=== PATIENT | male | born 1980 | race African-American/Black ===

== ENCOUNTER 2019-02-10 06:56 | Emergency (ER) | payer MEDICARE, MEDICAID ==
[~2019-02-10] VITALS: Ht 185.4 cm; Wt 104.0 kg
[2019-02-10 08:01] VITALS: BP 133/76
[2019-02-10] MEDS ORDERED: BACITRACIN ZINC OINT UDPKT TOP ONE (08:30)
== END 2019-02-10 09:24 | disposition home or self-care (01) ==
LOC: ER 06:56
DX: Z48.02 Encounter for removal of sutures (principal); R05 Cough; F17.210 Nicotine dependence, cigarettes, uncomplicated; I10 Essential (primary) hypertension; Z71.89 Other specified counseling; E11.9 Type 2 diabetes mellitus without complications; E78.00 Pure hypercholesterolemia, unspecified
CPT/HCPCS: 71045; 99283

== ENCOUNTER 2021-08-25 03:28 | Inpatient (IN) | payer OTHER, MEDICARE, MEDICAID ==
[~2021-08-25] VITALS: Ht 182.9 cm; Wt 147.0 kg
[2021-08-25] VITALS (25 sets, daily range): BP systolic 131–188; BP diastolic 69–138
[2021-08-25] MEDS ORDERED: IPRATROPIUM BROMIDE (0.02%) 0.5MG/2.5ML NEB HHN STA (04:00)
[2021-08-25] MEDS ORDERED: METHYLPREDNISOLONE SOD SUCC 125 MG/2 ML VIAL IV STA (04:00)
[2021-08-25] MEDS ORDERED: MAGNESIUM 2 G PREMIX 50 ML IV STA (04:00)
[2021-08-25] MEDS ORDERED: ALBUTEROL (0.083%) 2.5MG/3ML NEB HHN STA (04:00)
[2021-08-25 04:27] LABS: BASOPHILS % 0.2 % (0.0-2.0); EOSINOPHILS % 1.4 % (0.0-5.0); HEMATOCRIT. 37.9 % (42.0-52.0); HEMOGLOBIN. 12.1 g/dL (14.0-18.0); LYMPHOCYTES % 49.8 % (20.0-50.0); MEAN CORPUSCULAR HEMOGLOBIN 30.5 pg (28.0-32.0); MEAN CORPUSCULAR VOLUME 95.6 fL (80.0-94.0); MEAN PLATELET VOLUME 8.6 fl (7.4-10.4); MONOCYTES % 8.8 % (2.0-8.0); NEUTROPHILS % 39.8 % (40.0-76.0); PLATELET 220 x1000/uL (130-400); RED BLOOD CELL COUNT 3.96 mill/uL (4.7-6.1); RED CELL DISTRIBUTION WIDTH 14.1 % (11.6-14.6)
[2021-08-25 04:34] LABS: CHLORIDE 102 mEq/L (98-107)
[2021-08-25 04:43] LABS: ETHANOL BLOOD < 10 mg/dL
[2021-08-25 04:48] LABS: BG BASE EXCESS 3.1 mmol/L (-2.0-2.0); BG CARBOXYHEMOGLOBIN 5.1 % (0.5-1.5); BG DEOXYHEMOGLOBIN 3.6 % (0.0-5.0); BG HCO3 ACT 31.4 mmol/L (22.0-26.0); BG METHEMOGLOBIN 0.2 % (0.0-1.5); BG OXYGEN SATURATION 96.2 % (92.0-98.5); BG OXYHEMOGLOBIN 91.1 % (94.0-97.0); BG PCO2 66.2 mmHg (35.0-45.0); BG PH 7.294 (7.350-7.450); BG PO2 90.9 mmHg (75.0-100.0); BG SAMPLE SITE LEFT RADIAL; BG TOTAL HEMOGLOBIN 12.9 g/dL (12.0-18.0); BG VENT MODE COOL AEROSOL
[2021-08-25 05:05] LABS: *AMPHETAMINES SCREEN URINE NEGATIVE (NEGATIVE); *BARBITURATES SCREEN URINE NEGATIVE (NEGATIVE); *BENZODIAZEPINES SCREEN URINE NEGATIVE (NEGATIVE); *COCAINE SCREEN URINE NEGATIVE (NEGATIVE); CANNABINOID URINE SCREEN NEGATIVE (NEGATIVE); METHADONE URINE SCREEN NEGATIVE (NEGATIVE); OPIATES URINE SCREEN NEGATIVE (NEGATIVE); PHENCYCLIDINE URINE SCREEN NEGATIVE (NEGATIVE)
[2021-08-25] MEDS ORDERED: IPRATROPIUM/ALBUTEROL 0.5-3(2.5)MG/3ML NEB NEB PRN (07:30)
[2021-08-25] MEDS ORDERED: GUAIFENESIN 200MG/10ML SUGAR FREE UDC PO PRN (07:30)
[2021-08-25] MEDS ORDERED: ONDANSETRON HCL 4MG/2ML INJ IV PRN (07:30)
[2021-08-25] MEDS ORDERED: DEXTROSE 50% WATER 50ML SYRINGE IV PRN (07:30)
[2021-08-25] MEDS ORDERED: ACETAMINOPHEN 325MG TABLET PO PRN ×2 (07:30)
[2021-08-25] MEDS ORDERED: DOCUSATE SODIUM 100MG CAPSULE PO PRN (07:30)
[2021-08-25] MEDS ORDERED: MAGNESIUM/ALUMINUM HYDROXIDE/SIMETHICONE 30ML UDC PO PRN (07:30)
[2021-08-25] MEDS ORDERED: KETOROLAC 15MG/ML VIAL IV PRN (07:30)
[2021-08-25] MEDS ORDERED: NITROGLYCERIN 0.4MG TABLET SL SL PRN (07:45)
[2021-08-25] MEDS: INSULIN LISPRO 100 UNITS/ML SUBCUT SCH ×5 (08:15→22:07)
[2021-08-25] MEDS: ENOXAPARIN 40MG/0.4ML SYR SUBCUT SCH (08:20)
[2021-08-25] MEDS: IPRATROPIUM/ALBUTEROL 0.5-3(2.5)MG/3ML NEB HHN SCH ×4 (08:23→20:15)
[2021-08-25 08:28] LABS: FOLIC ACID (FOLATE) SERUM 9.1 ng/mL (>5.38)
[2021-08-25] MEDS: SPIRONOLACTONE 25MG TABLET PO SCH ×2 (09:00→22:05)
[2021-08-25] MEDS: BLOOD SUGAR DIAGNOSTIC STRIP TEST SCH ×4 (09:00→21:27)
[2021-08-25] MEDS ORDERED: ASPIRIN 325MG EC TABLET PO SCH (09:00)
[2021-08-25] MEDS: FAMOTIDINE 20MG TABLET PO SCH ×2 (09:00→22:04)
[2021-08-25] MEDS ORDERED: ETOMIDATE 2MG/ML 10ML VIAL IV ONE (09:21)
[2021-08-25] MEDS ORDERED: SODIUM CHLORIDE 0.9% 10ML VIAL ONE (09:21)
[2021-08-25] MEDS ORDERED: VECURONIUM BROMIDE 10 MG/VIAL IV ONE (09:21)
[2021-08-25] MEDS ORDERED: FENTANYL 2500MCG/250ML PMX 250 ML IV PRN (09:30)
[2021-08-25] MEDS: PROPOFOL 10MG/ML 100ML 100 ML IV SCH ×4 (10:04→19:25)
[2021-08-25 10:09] LABS: BG BASE EXCESS -0.7 mmol/L (-2.0-2.0); BG DEOXYHEMOGLOBIN 1.9 % (0.0-5.0); BG HCO3 ACT 25.8 mmol/L (22.0-26.0); BG METHEMOGLOBIN 0.3 % (0.0-1.5); BG OXYGEN SATURATION 98.1 % (92.0-98.5); BG OXYHEMOGLOBIN 95.8 % (94.0-97.0); BG PCO2 49.5 mmHg (35.0-45.0); BG PH 7.335 (7.350-7.450); BG PO2 108.1 mmHg (75.0-100.0); BG SAMPLE SITE RIGHT RADIAL; BG VENT MODE VENT - AC
[2021-08-25] MEDS: FUROSEMIDE 40MG/4ML VIAL IVP SCH ×2 (10:31→22:05)
[2021-08-25] MEDS: CLONIDINE 0.1MG TABLET PO PRN (10:31)
[2021-08-25] MEDS: HYDRALAZINE 20MG/ML VIAL IV PRN ×2 (10:42→23:50)
[2021-08-25] MEDS: ASPIRIN 325MG TABLET PO SCH (11:39)
[2021-08-25] MEDS: DILTIAZEM HCL 60MG TABLET PO SCH ×2 (12:12→18:00)
[2021-08-25] MEDS: INSULIN GLARGINE 100 UNITS/ML SUBCUT SCH (12:39)
[2021-08-25] MEDS: NITROGLYCERIN OINT 1GM/INCH UDPKT TD SCH ×2 (14:00→22:08)
[2021-08-25] MEDS: METHYLPREDNISOLONE SOD SUCC 125 MG/2 ML VIAL IV SCH ×2 (15:13→22:04)
[2021-08-25] MEDS ORDERED: VANCOMYCIN 2,000 MG in DEXT 5% WATER 500 ML IV NR (20:00)
[2021-08-25] MEDS ORDERED: ZOLPIDEM TARTRATE 5MG TABLET PO PRN (21:00)
[2021-08-25] MEDS: PIPERACILLIN/TAZOBACTAM 3.375 G in DEXTROSE 5% WATER 50 ML IV SCH (22:05)
[2021-08-25] MEDS: FENTANYL 2500MCG/250ML PMX 250 ML IV PRN (22:09)
[2021-08-26] VITALS (97 sets, daily range): BP systolic 113–191; BP diastolic 55–132
[2021-08-26] MEDS ORDERED: PROPOFOL 10MG/ML 100ML 100 ML IV PRN (00:15)
[2021-08-26] MEDS: IPRATROPIUM/ALBUTEROL 0.5-3(2.5)MG/3ML NEB HHN SCH ×6 (00:23→20:12)
[2021-08-26 00:47] LABS: CREATINE KINASE 86 IU/L (39-308); CREATINE KINASE MB FRACTION 2.7 ng/mL (0.5-3.6)
[2021-08-26] MEDS: PROPOFOL 10MG/ML 100ML 100 ML IV PRN ×4 (00:52→11:04)
[2021-08-26] MEDS ORDERED: VANCOMYCIN 1G PREMIX 200 ML IV SCH (03:00)
[2021-08-26] MEDS: BLOOD SUGAR DIAGNOSTIC STRIP TEST SCH ×4 (05:22→21:22)
[2021-08-26] MEDS: DILTIAZEM HCL 60MG TABLET PO SCH ×4 (05:22→17:31)
[2021-08-26] MEDS: HYDRALAZINE 20MG/ML VIAL IV PRN ×2 (05:33→16:08)
[2021-08-26] MEDS: METHYLPREDNISOLONE SOD SUCC 125 MG/2 ML VIAL IV SCH (05:33)
[2021-08-26] MEDS: PIPERACILLIN/TAZOBACTAM 3.375 G in DEXTROSE 5% WATER 50 ML IV SCH ×3 (05:33→21:23)
[2021-08-26] MEDS: NITROGLYCERIN OINT 1GM/INCH UDPKT TD SCH ×3 (05:33→21:31)
[2021-08-26] MEDS: VANCOMYCIN 1.25GM PMX (XELLIA) 250 ML IV SCH ×3 (05:35→21:23)
[2021-08-26 05:49] LABS: HEMOGLOBIN. 13.3 g/dL (14.0-18.0); MEAN CORPUSCULAR HEMOGLOBIN 30.6 pg (28.0-32.0); MEAN CORPUSCULAR VOLUME 94.5 fL (80.0-94.0); MEAN PLATELET VOLUME 9.6 fl (7.4-10.4); PLATELET 234 x1000/uL (130-400); RED BLOOD CELL COUNT 4.34 mill/uL (4.7-6.1); RED CELL DISTRIBUTION WIDTH 14.2 % (11.6-14.6)
[2021-08-26 06:01] LABS: CHLORIDE 101 mEq/L (98-107)
[2021-08-26] MEDS: INSULIN LISPRO 100 UNITS/ML SUBCUT SCH ×7 (07:23→21:38)
[2021-08-26 07:47] LABS: PLATELET ESTIMATE NORMAL
[2021-08-26 08:04] LABS: BG CARBOXYHEMOGLOBIN 0.6 % (0.5-1.5); BG DEOXYHEMOGLOBIN 1.5 % (0.0-5.0); BG FRACTION INSPIRED OXYGEN 75; BG HCO3 ACT 28.3 mmol/L (22.0-26.0); BG METHEMOGLOBIN 0.3 % (0.0-1.5); BG OXYGEN SATURATION 98.5 % (92.0-98.5); BG OXYHEMOGLOBIN 97.6 % (94.0-97.0); BG PCO2 45.9 mmHg (35.0-45.0); BG PH 7.408 (7.350-7.450); BG PO2 126.4 mmHg (75.0-100.0); BG SAMPLE SITE RIGHT RADIAL; BG TOTAL HEMOGLOBIN 14.9 g/dL (12.0-18.0); BG VENT MODE VENT - AC
[2021-08-26] MEDS: ASPIRIN 325MG TABLET PO SCH (08:19)
[2021-08-26] MEDS: ENOXAPARIN 40MG/0.4ML SYR SUBCUT SCH ×2 (08:19→21:31)
[2021-08-26] MEDS: FAMOTIDINE 20MG TABLET PO SCH ×2 (08:19→21:30)
[2021-08-26] MEDS: FUROSEMIDE 40MG/4ML VIAL IVP SCH ×2 (08:20→21:31)
[2021-08-26] MEDS: SPIRONOLACTONE 25MG TABLET PO SCH ×2 (08:23→21:30)
[2021-08-26] MEDS: INSULIN GLARGINE 100 UNITS/ML SUBCUT SCH (09:51)
[2021-08-26] MEDS ORDERED: MAGNESIUM 4 G PREMIX 100 ML IV NR (11:00)
[2021-08-26] MEDS: MIDAZOLAM 100MG/100ML PMX 100 ML IV PRN ×2 (11:56→21:22)
[2021-08-26] MEDS: METHYLPREDNISOLONE SOD SUCC 40 MG/ML VIAL IV SCH (17:31)
[2021-08-26] MEDS: CLONIDINE 0.1MG TABLET PO PRN (17:32)
[2021-08-26] MEDS: FENTANYL 2500MCG/250ML PMX 250 ML IV PRN (22:12)
[2021-08-27] VITALS (63 sets, daily range): BP systolic 93–156; BP diastolic 42–103
[2021-08-27] MEDS: IPRATROPIUM/ALBUTEROL 0.5-3(2.5)MG/3ML NEB HHN SCH ×5 (00:36→20:11)
[2021-08-27 03:36] LABS: CHLORIDE 103 mEq/L (98-107)
[2021-08-27 03:49] LABS: VANCOMYCIN TROUGH 26.2 ug/mL (5.0-10.0)
[2021-08-27] MEDS: NITROGLYCERIN OINT 1GM/INCH UDPKT TD SCH ×2 (05:11→13:11)
[2021-08-27] MEDS: PIPERACILLIN/TAZOBACTAM 3.375 G in DEXTROSE 5% WATER 50 ML IV SCH ×2 (05:11→13:12)
[2021-08-27] MEDS: VANCOMYCIN 1.25GM PMX (XELLIA) 250 ML IV SCH (05:11)
[2021-08-27] MEDS: DILTIAZEM HCL 60MG TABLET PO SCH ×4 (06:00→18:00)
[2021-08-27] MEDS: INSULIN LISPRO 100 UNITS/ML SUBCUT SCH ×7 (06:49→20:22)
[2021-08-27] MEDS: BLOOD SUGAR DIAGNOSTIC STRIP TEST SCH ×4 (06:50→20:21)
[2021-08-27 08:21] LABS: BG BASE EXCESS 3.7 mmol/L (-2.0-2.0); BG CARBOXYHEMOGLOBIN 0.8 % (0.5-1.5); BG DEOXYHEMOGLOBIN 6.4 % (0.0-5.0); BG FRACTION INSPIRED OXYGEN 50; BG HCO3 ACT 27.5 mmol/L (22.0-26.0); BG METHEMOGLOBIN 0.3 % (0.0-1.5); BG OXYGEN SATURATION 93.5 % (92.0-98.5); BG OXYHEMOGLOBIN 92.5 % (94.0-97.0); BG PCO2 38.9 mmHg (35.0-45.0); BG PH 7.468 (7.350-7.450); BG PO2 68.9 mmHg (75.0-100.0); BG SAMPLE SITE RIGHT RADIAL; BG TOTAL HEMOGLOBIN 13.9 g/dL (12.0-18.0); BG VENT MODE VENT - AC
[2021-08-27] MEDS: SPIRONOLACTONE 25MG TABLET PO SCH ×2 (08:22→20:21)
[2021-08-27] MEDS: FUROSEMIDE 40MG/4ML VIAL IVP SCH ×2 (08:22→20:21)
[2021-08-27] MEDS: METHYLPREDNISOLONE SOD SUCC 40 MG/ML VIAL IV SCH (08:22)
[2021-08-27] MEDS: ASPIRIN 325MG TABLET PO SCH (08:22)
[2021-08-27] MEDS: FAMOTIDINE 20MG TABLET PO SCH ×2 (08:22→20:21)
[2021-08-27] MEDS: ENOXAPARIN 40MG/0.4ML SYR SUBCUT SCH ×2 (08:23→20:21)
[2021-08-27] MEDS: INSULIN GLARGINE 100 UNITS/ML SUBCUT SCH (11:14)
[2021-08-27] MEDS: GUAIFENESIN 200MG/10ML SUGAR FREE UDC PO SCH ×2 (13:10→18:06)
[2021-08-27] MEDS: MIDAZOLAM 100MG/100ML PMX 100 ML IV PRN (16:48)
[2021-08-27] MEDS ORDERED: VANCOMYCIN 1.25GM PMX (XELLIA) 250 ML IV SCH (18:00)
[2021-08-27] MEDS: FENTANYL 2500MCG/250ML PMX 250 ML IV PRN (20:20)
[2021-08-28] MEDS ORDERED: METHYLPREDNISOLONE SOD SUCC 40 MG/ML VIAL IV SCH (09:00)
== END 2021-08-27 21:30 | disposition short-term general hospital (02) | DRG 208 ==
LOC: ER 03:28 → MICUNO 05:20 → ENRESERV 15:30 → CVICU 08-27 02:48
PROVIDERS: ADMIT Internal Medicine; ATTEND Internal Medicine
PROC: 0BH17EZ Insertion of Endotracheal Airway into Trachea, Via Natural or Artificial Opening (ICD-10-PCS; principal; 2021-08-25)
PROC: 5A1945Z Respiratory Ventilation, 24-96 Consecutive Hours (ICD-10-PCS; 2021-08-25)
PROC: 5A09357 Assistance with Respiratory Ventilation, Less than 24 Consecutive Hours, Continuous Positive Airway Pressure (ICD-10-PCS; 2021-08-25)
DX: J96.02 Acute respiratory failure with hypercapnia (principal); G92.8 Other toxic encephalopathy; J69.0 Pneumonitis due to inhalation of food and vomit; I16.1 Hypertensive emergency; J45.901 Unspecified asthma with (acute) exacerbation; E44.0 Moderate protein-calorie malnutrition; Z68.41 Body mass index [BMI] 40.0-44.9, adult; J96.01 Acute respiratory failure with hypoxia; G40.909 Epilepsy, unspecified, not intractable, without status epilepticus; F32.A Depression, unspecified; F17.200 Nicotine dependence, unspecified, uncomplicated; I10 Essential (primary) hypertension; Z20.822 Contact with and (suspected) exposure to COVID-19; E66.9 Obesity, unspecified; E11.9 Type 2 diabetes mellitus without complications; Q98.4 Klinefelter syndrome, unspecified; Z78.1 Physical restraint status; Z88.8 Allergy status to other drugs, medicaments and biological substances
CPT/HCPCS: 31500; 36415; 36600; 71045; 80048; 80053; 80061; 80202; 80305; 80320; 82375; 82550; 82553; 82607; 82746; 82805; 82962; 83036; 83540; 83550; 83605; 83735; 83880; 84100; 84145; 84443; 84478; 84484; 85025; 87070; 87077; 87186; 87426; 93306; 93970; 94002; 94003; 94640; 94660; 99291; C9803; J0360; J1650; J1815; J1940; J2250; J2543; J2704; J2920; J2930; J3010; J3370; J3475; J3490; J7060; A4315; G0480